=== PATIENT | female | born 1950 | race Caucasian/White ===

== ENCOUNTER 2025-02-24 13:54 | Outpatient (CLI) | payer MEDICARE, SELFPAY | END 2025-02-24 23:59 | disposition home or self-care (01) | LOC: RT 13:55 | PROVIDERS: PCP Nurse Practitioner; Visit Provider Physician Assistant | DX: R42 Dizziness and giddiness (principal); R00.2 Palpitations | CPT/HCPCS: 93225; 93227 ==